=== PATIENT | female | born 1995 | race African-American/Black ===

== ENCOUNTER 2020-02-05 12:46 | Inpatient (IN) | payer MEDICARE, MEDICAID, SELFPAY ==
[2020-02-05] VITALS (36 sets, daily range): BP systolic 101–154; BP diastolic 54–140; PULSE 83–110; RESP 13–32; TEMP 36.4–36.7; O2SAT 93–100; BMI 27.3
--- NOTE | ~2020-02-05 | XR_ITS ---
XR chest 1V portable DATE: 02/05/2020 13:41 INDICATION: Chest pain. Sickle cell. TECHNIQUE: Portable upright AP chest on 02/05/2020 at 1339 hours COMPARISON: None FINDINGS: Right Port-A-Cath catheter, catheter tip overlying upper right atrium. There is borderline heart size (not optimally evaluated on AP projection because of magnification). There is pulmonary vascular redistribution, consistent with mild pulmonary venous hypertension. There is mild atelectasis at the right lung base.The lungs otherwise appear clear. There is patchy density at the proximal right humerus suggesting bone infarct. IMPRESSION: Mild pulmonary venous redistribution Mild atelectasis at the right lung base Reviewed, dictated and finalized at location A.
--- NOTE | ~2020-02-05 | CT_ITS ---
EXAMINATION: CT brain wo con DATE: 02/05/2020 14:56 INDICATION: Syncope TECHNIQUE: Computed tomography (CT) of the head was performed without intravenous contrast. Sagittal and coronal reconstructions were performed. The mA was adjusted according to patient size. Iterative reconstruction technique was employed. The dose-length product was 605.33 mGy-cm. COMPARISON: None FINDINGS: No acute intracranial hemorrhage, acute infarction or abnormal extra axial fluid collection. Ventricl es are normal and symmetric. No mass/mass effect. The orbits, paranasal sinuses and mastoid air cells are normal. IMPRESSION: 1. Normal head CT. Reviewed, dictated and finalized at location A. IMPRESSION: 1. Normal head CT.
--- NOTE | ~2020-02-05 | CT_ITS ---
EXAMINATION: CTA chest PE protocol EXAM DATE: 02/05/2020 14:56 INDICATION: Syncope. Difficulty breathing. Chest pain. TECHNIQUE: Spiral CTA of the chest (pulmonary arteries) was performed with 100 cc Omnipaque 350 intr avenous contrast injection. Images were acquired during the pulmonary arterial phase. Coronal maxi mum intensity projection 3D-reconstructions were created by the technologist on dedicated workstation . Axial, coronal and sagittal reformatted images were reviewed. The dose-length product (DLP) for t his examination was 681.03 mGy-cm. The exposure was tailored according to patient size (auto mA exp osure control), and iterative reconstruction (ASIR) was used as additional dose reduction technique. There is no prior study for comparison. FINDINGS: Suboptimal injection, but vessels still adequately enhanced. There are no pulmonary emboli . Right-sided Chemo-Port. There is cardiomegaly. No thoracic aortic dissection. Several linear ganesh ons of right basilar atelectasis. No evidence of superimposed infection. There are no pleural or per icardial effusions. Tracheobronchial tree is patent. There is no mediastinal, hilar or axillary l ymphadenopathy. There is no pneumothorax. No evidence of coronary arterial calcification. Cholec ystectomy clips. Abnormal appearance to the vertebral bodies, some sclerosis and mottled appearance with some endplate cavitation, characteristic appearance for sickle cell disease? IMPRESSION: 1. No pulmonary emboli. 2. Scattered regions of linear right basilar atelectasis. 3. Cardiomegaly. 4. Bone changes consistent with sickle cell disease. Reviewed, dictated and finalized at location B.
--- NOTE | 2020-02-05 13:00 | ECG_ITS ---
Measurements Intervals [place] Rate: 86 P: 147 [place]: 136 QRS: -32 QRSD: 97 T: 27 QT: 403 QTc: 484 Interpretive Statements SINUS RHYTHM LEFT AXIS DEVIATION EARLY PRECORDIAL R/S TRANSITION HIGH LATERAL INFARCT, AGE INDETERMINATE BORDERLINE T WAVE ABNORMALITY- ANT/INF LEADS BASELINE WANDER- I, II, AVR ABNORMAL ECG Electronically Signed On 02-05-2020 13:44:06 CDT by Tyree Garcia D.O.
--- NOTE | 2020-02-05 13:26 | ED.GENADULT ---
HPI - General Adult General Chief complaint: Syncope Stated complaint: DIFFICULTY BREATHING,CP Time Seen by Provider: 02/05/20 12:47 Source: patient and EMS History of Present Illness HPI narrative: Patient is a 24 y/o female complaining of chest pain and SOB starting less than 1 hour ago. She states that her chest pain is located in mid-sternal area and rates it as 10/10. There is no alleviating or exacerbating factor. She also got dizzy and possibly passed out or almost passed out. She has diffuse bodyache. She was working at [employer] building while this happened. Of note, she has history of sickle cell disease. Related Data Home Medications Medication Instructions Recorded Confirmed oxycodone-acetaminophen 10 - 325 tablet PO Q6H PRN 02/05/20 02/05/20 Allergies Allergy/AdvReac Type Severity Reaction Status Date / Time morphine Allergy Hives Verified 02/05/20 13:01 Review of Systems Constitutional: Constitutional: Denies chills, Denies fever(s), Denies headache(s) and Denies weakness Eyes: Eyes: Denies blurry vision ENT: Denies headache(s) and Denies neck pain Cardiovascular: Cardiovascular: Reports chest pain and Reports dyspnea Respiratory: Respiratory: Denies cough and Reports dyspnea Gastrointestinal: Gastrointestinal: Denies abdominal pain, Denies diarrhea, Denies nausea and Denies vomiting Genitourinary: Genitourinary: Denies hematuria and Denies dysuria Musculoskeletal: Musculoskeletal: Denies back pain, Reports myalgias and Denies neck pain Neurologic: Reports dizziness, Reports syncope, Denies headache(s) and Denies weakness [facility] Social History Social History Gender identity (if verbalized by the patient): Female Sexual Orientation (if Verbalized by the Patient): Straight or Heterosexual Exam Const: General: no acute distress and well developed Orientation/consciousness: oriented to person, oriented to place, oriented to time and patient oriented x3 HENMT: Head: normocephalic Ears: external ears normal General nose exam: Normal external nose present Eyes: General: appearance normal, both eyes and all related structures Conjunctivae: conjunctivae normal Neck: Neck: normal visual inspection and full ROM Chest: Chest palpation & inspection: normal inspection of the chest and no tenderness Resp: Effort & Inspection: normal respiratory effort Auscultation: clear to auscultation bilaterally Cardio: Rate: regular rate Rhythm: regular rhythm GI: GI Palp: No abdominal tenderness and Yes Soft to palpation Skin: General skin exam: normal color and turgor normal Neuro: General: oriented to person, oriented to place, oriented to time and patient oriented x3 Cognition (Neuro): normal cognition Extrem: General: normal to inspection, full ROM and no pedal edema Psych: Appearance: grossly normal Mental Status: mental status grossly normal Affect: normal affect Course Consultations Consultation #1: Discussed with JACOBO Chavis, who agrees to admit to Dr. Matos. Date: 02/05/20 Time: 17:50 Vital Signs Vital signs: Vital Signs Temperature 36.7 C 02/05/20 12:47 Pulse Rate 90 02/05/20 12:47 Respiratory Rate 13 02/05/20 12:47 Blood Pressure 124/82 02/05/20 12:47 Pulse Oximetry 100 02/05/20 12:47 Temperature 36.7 C 02/05/20 13:02 Pulse Rate 90 02/05/20 20:26 Respiratory Rate 18 02/05/20 20:26 Blood Pressure 111/54 L 02/05/20 20:26 Pulse Oximetry 100 02/05/20 20:26 Medical Decision Making Vital Signs Vital Signs: Vital Signs Temperature 36.7 C 02/05/20 12:47 Pulse Rate 90 02/05/20 12:47 Respiratory Rate 13 02/05/20 12:47 Blood Pressure 124/82 02/05/20 12:47 Pulse Oximetry 100 02/05/20 12:47 Temperature 36.7 C 02/05/20 13:02 Pulse Rate 90 02/05/20 20:26 Respiratory Rate 18 02/05/20 20:26 Blood Pressure 111/54 L 02/05/20 20:26 Pulse Oximetry 100 02/05/20
[2020-02-05 13:40] LABS: Basophils Absolute Auto 0.1 K/mm3 (0.0-0.1); Basophils Percent Auto 0.4 % (0.2-1.2); Eosinophils Absolute Auto 0.3 K/mm3 (0-0.3); Eosinophils Percent Auto 1.6 % (0-4.4); Hematocrit 21.1 % (37.0-47.0); Hemoglobin 7.2 g/dL (12.0-15.0); Immature Granulocyte Absolute 1.15 K/mm3 (0.00-0.031); Immature Granulocyte Percent A 5.7 % (0-0.5); Lymphocytes Absolute Auto 3.87 K/mm3 (0.9-3.2); Lymphocytes Percent Auto 19.1 % (18.3-44.2); Mean Corpuscular HGB Conc 34.1 g/dl (32-36); Mean Corpuscular Hemoglobin 30.8 pg (26-34); Mean Corpuscular Volume 90.2 fl (80-100); Mean Platelet Volume 9.9 fl (7.4-10.4); Monocytes Absolute Auto 1.7 K/mm3 (0.1-0.6); Monocytes Percent Auto 8.2 % (2.6-8.5); Neutrophils Absolute Auto 13.2 K/mm3 (1.3-6.7); Nucleated Red Blood Cells Absolute Auto 0.3 K/mm3 (0.0-0.012); Nucleated Red Blood Cells Perc 1.6 % (0.0-0.2); Platelet Count Result 429 k/mm3 (150-375); Red Blood Count 2.34 M/mm3 (4.2-5.4); Red Cell Distribution Width 24.1 % (11.5-14.5); White Blood Count 20.3 K/mm3 (4.5-10.0)
[2020-02-05 13:51] LABS: D Dimer 1.82 ug/mL (<0.48)
[2020-02-05 13:52] LABS: Alanine Aminotransferase 28 U/L (4-35); Albumin Level 4.6 g/dL (3.5-5.1); Alkaline Phosphatase 117 U/L (38-126); Anion Gap 12 mmol/L (8-16); Aspartate Amino Transferase 41 U/L (14-36); Bilirubin,Total 2.8 mg/dL (0.2-1.3); Blood Urea Nitrogen 7 mg/dL (7-17); Calcium 9.1 mg/dL (8.4-10.2); Carbon Dioxide 22 mmol/L (22-30); Chloride 108 mmol/L (98-107); Estimated CRCL calculation 181 ml/min; Estimated Glomerular Filt Rate > 60; Glucose 105 mg/dL (65-105); Potassium 3.8 mmol/L (3.4-5.0); Sodium 142 mmol/L (137-145)
[2020-02-05 14:03] LABS: Troponin I < 0.012 ng/mL (0.000-0.034)
[2020-02-05 14:14] LABS: Reticulocyte Hemoglobin Conten 30.8 pg (28.2-35.7); Reticulocyte Percent 27.51 % (0.7-4.3); Reticulocytes Absolute 0.64 B/L (32.2-175.7)
[2020-02-05 14:17] LABS: Add Urine Microscopic? YES; Appearance Urine Cloudy (Clear); Bacteria Urine 1+ /hpf; Bilirubin Urine Negative (Negative); Blood Urine Negative (Negative); Color Urine Yellow (Yellow); Glucose Urine UA Negative (Negative); Ketones Urine Negative (Negative); Leukocyte Esterase Ur Trace LEU/UL (Negative); Mucus Urine Rare /lpf; Nitrate Urine Negative (Negative); Protein Urine 1+ mg/dL (Negative); RBC Urine 0-2 /hpf (0-2); Specific Grav Ur 1.013 (1.001-1.035); Squamous Epithelial Cell Urine Many /hpf (Few); WBC Urine 0-3 /hpf
[2020-02-05] MEDS: KETOROLAC 30 MG/ML VIAL (*BKC) IV PUSH (14:29)
[2020-02-05 16:57] LABS: Troponin I < 0.012 ng/mL (0.000-0.034)
[2020-02-05] MEDS: fentaNYL CITRATE INJ (*CRX) 100 MCG/2 ML VIAL 50 MCG IV PUSH ×3 (17:11→23:30)
[2020-02-05] MEDS: SODIUM CHLORIDE 0.9% IV 1,000 ML 999 ML IV CONT (18:21)
[2020-02-05] MEDS: SODIUM CHLORIDE 0.9% IV 1,000 ML 125 ML IV CONT (20:00)
[2020-02-05 20:17] LABS: Troponin I < 0.012 ng/mL (0.000-0.034)
--- NOTE | 2020-02-05 20:29 | PC.NURSE ---
pt transferred to the floor at this time. unable to discharge from our tracker.
--- NOTE | 2020-02-05 23:35 | ADMGEN ---
This patient, Jered Holloway, was admitted to 2 Medical Room 241-01. Patient/family oriented to hospital policies and general routines including ID bracelet, bed and alarms, visiting hours, pain management, procedures, bathroom and other care routines, personal items, smoking policy, room service/diet, and visiting hours. Valuables list has been completed. Information on how to activate the Rapid Response Team has been discussed. Patient/Family are encouraged to report perceived risks to care and to ask questions if they do not understand what they are told or what they should do.
[2020-02-06] VITALS (13 sets, daily range): BP systolic 106–123; BP diastolic 48–71; PULSE 79–114; RESP 16–22; TEMP 36.4–37.1; O2SAT 94–98
[2020-02-06] MEDS: HYDROmorphone HCL INJ (*CRX) 1 MG/ML SYR IV PUSH ×5 (01:25→20:24)
[2020-02-06] MEDS: SODIUM CHLORIDE 0.9% IV 1,000 ML 125 ML IV CONT ×2 (04:35→12:31)
--- NOTE | 2020-02-06 12:10 | PM.IMHP ---
H&P: HPI History of Present Illness Date/Time: 02/06/20 12:10 Chief complaint: sickle cell crisis, syncope Narrative: cc chest pain Jered Holloway is a 24 year old female pt works in [employer] pt had a rapid response called yesterday when she passed out in the hospital taken straight to ED. Pt had felt chest pain and sob. Pt has a history of sickle cell disease. Pe was suspected. Pt had ct chest which showed ateclectasis. Pt running high wcc and low hb. Pt to have iv abx and blood transfusion today. Chest pain ongoing 12/09 this morning pt looks in distress. Pt sees sickle cell specialist in [facility]. I will consult DR Frank here. Chest pain central associated with SOB,dizziness and body aches, severe yesterday 02/08 Review of Systems Constitutional: Constitutional: Reports fatigue and Reports weakness Comments: sweaty flushed Cardiovascular: Cardiovascular: Reports chest pain Respiratory: Respiratory: Denies chest congestion and Reports dyspnea Gastrointestinal: Gastrointestinal: Denies no additional gastrointestinal complaints Musculoskeletal: Musculoskeletal: Reports back pain and Reports myalgias Comments: legs back Neurologic: Denies Abnormal speech present, Denies confusion, Denies lack of coordination, Denies focal weakness and Denies paresthesias Psychiatric: Psychiatric: Denies no additional psychiatric complaints PMFSH Social History Social History Smoking status: Never smoker Alcohol intake: never Substance use: never Gender identity (if verbalized by the patient): Female Sexual Orientation (if Verbalized by the Patient): Straight or Heterosexual Spiritual care concerns: No Meds Home Medications and Allergies Home Medications Medication Instructions Recorded Confirmed Type oxycodone-acetaminophen 10 - 325 tablet PO Q6H PRN 02/05/20 02/05/20 History Allergies Allergy/AdvReac Type Severity Reaction Status Date / Time morphine Allergy Hives Verified 02/05/20 13:01 Vital Signs Vital Signs - 24 hr 02/05/20 12:47 02/05/20 12:51 02/05/20 12:52 Temperature 36.7 C Pulse Rate 90 86 84 Respiratory Rate 13 16 22 H Blood Pressure 124/82 124/82 Pulse Oximetry 100 97 100 02/05/20 13:01 02/05/20 13:02 02/05/20 13:15 Temperature 36.7 C Pulse Rate 89 86 110 H Respiratory Rate 21 H 18 13 Blood Pressure 125/73 Pulse Oximetry 100 100 97 02/05/20 13:16 02/05/20 13:30 02/05/20 13:31 Temperature Pulse Rate 105 H Respiratory Rate 18 Blood Pressure 154/140 H Pulse Oximetry 93 93 97 02/05/20 13:45 02/05/20 13:46 02/05/20 14:01 Temperature Pulse Rate 89 87 Respiratory Rate Blood Pressure 112/60 101/73 Pulse Oximetry 95 100 94 02/05/20 14:02 02/05/20 14:16 02/05/20 14:18 Temperature Pulse Rate 101 H Respiratory Rate 19 Blood Pressure 105/60 Pulse Oximetry 97 97 98 02/05/20 14:30 02/05/20 14:31 02/05/20 15:02 Temperature Pulse Rate 92 85 94 Respiratory Rate 18 16 25 H Blood Pressure 117/79 Pulse Oximetry 98 98 96 02/05/20 15:15 02/05/20 15:30 02/05/20 15:47 Temperature Pulse Rate Respiratory Rate Blood Pressure Pulse Oximetry 99 100 97 02/05/20 16:00 02/05/20 16:24 02/05/20 16:33 Temperature Pulse Rate 93 84 Respiratory Rate 18 20 Blood Pressure Pulse Oximetry 98 99 02/05/20 16:53 02/05/20 17:10 02/05/20 17:15 Temperature Pulse Rate 102 H Respiratory Rate 32 H Blood Pressure 113/62 Pulse Oximetry 97 99 98 02/05/20 17:16 02/05/20 17:30 02/05/20 17:31 Temperature Pulse Rate 95 88 83 Respiratory Rate 19 21 H 18 Blood Pressure 120/68 Pulse Oximetry 97 100 100 02/05/20 18:26 02/05/20 18:44 02/05/20 18:45 Temperature Pulse Rate 84 93 94 Respiratory Rate 21 H 20 21 H Blood Pressure 111/54 L Pulse Oximetry 97 99 99 02/05/20 18:46 02/05/20 20:00
[2020-02-06] MEDS: oxyCODONE HCL (*CRX) 5 MG TAB IR PO (12:30)
[2020-02-06] MEDS: diphenhydrAMINE HCl CAP 25 MG CAPSULE 50 MG PO (15:53)
[2020-02-06] MEDS: HYDROXYUREA (*CHEMO) 500 MG CAPSULE PO (17:34)
[2020-02-07] VITALS (9 sets, daily range): BP systolic 104–121; BP diastolic 56–70; PULSE 67–104; RESP 16–22; TEMP 36.2–37.4; O2SAT 96–100
[2020-02-07] MEDS: HYDROmorphone HCL INJ (*CRX) 1 MG/ML SYR IV PUSH ×5 (01:00→22:30)
[2020-02-07] MEDS: SODIUM CHLORIDE 0.9% IV 1,000 ML 125 ML IV CONT ×3 (01:30→18:45)
[2020-02-07 06:09] LABS: Hematocrit 23.7 % (37.0-47.0); Hemoglobin 7.7 g/dL (12.0-15.0); Mean Corpuscular HGB Conc 32.5 g/dl (32-36); Mean Corpuscular Hemoglobin 29.8 pg (26-34); Mean Corpuscular Volume 91.9 fl (80-100); Mean Platelet Volume 10.4 fl (7.4-10.4); Platelet Count Result 372 k/mm3 (150-375); Red Blood Count 2.58 M/mm3 (4.2-5.4); White Blood Count 13.7 K/mm3 (4.5-10.0)
[2020-02-07 06:35] LABS: Anion Gap 9 mmol/L (8-16); Blood Urea Nitrogen 4 mg/dL (7-17); Calcium 8.8 mg/dL (8.4-10.2); Carbon Dioxide 26 mmol/L (22-30); Chloride 106 mmol/L (98-107); Estimated CRCL calculation 181 ml/min; Estimated Glomerular Filt Rate > 60; Glucose 95 mg/dL (65-105); Potassium 3.9 mmol/L (3.4-5.0); Sodium 141 mmol/L (137-145)
[2020-02-07] MEDS: HYDROXYUREA (*CHEMO) 500 MG CAPSULE PO ×2 (08:38→16:36)
--- NOTE | 2020-02-07 12:29 | PM.IMPN ---
Progress Note: A&P Assessment and Plan (1) Sickle cell crisis: Code(s): D57.00 - Hb-SS disease with crisis, unspecified Status: Acute Assessment and Plan: Consult Dr Frank hematology Continue iv dilaudid for severe pain and iv fluids, continue pts home oxycodone Continue hydroxyrea Sp blood transfusion (2) Chest pain: Qualifiers: Chest pain type: unspecified Qualified Code(s): R07.9 - Chest pain, unspecified Code(s): R07.9 - Chest pain, unspecified Status: Acute Assessment and Plan: Secondary to early pneumonia, IV rocephin and iv zithromax started, Bc negative to date (3) Syncope: Qualifiers: Syncope type: unspecified Qualified Code(s): R55 - Syncope and collapse Code(s): R55 - Syncope and collapse Status: Resolved Assessment and Plan: Secondary to dizziness and bodyaches and pneumonia Subjective Date/time seen: 02/07/20 12:29 Interval history: 24 year old female pt works in [employer] pt had a rapid response called yesterday when she passed out in the hospital taken straight to ED. Pt had felt chest pain and sob. Pt feels better today denies chest pain or sob today no cough or fever. Wcc improving, Hb still low. Pt received blood yesterday from [place], awaiting to see Dr Frank here, hopeful discharge in 1-2 days time. Review of Systems Constitutional: Constitutional: Reports fatigue and Reports weakness Cardiovascular: Cardiovascular: Denies chest pain and Denies dyspnea Respiratory: Respiratory: Denies cough, Denies excessive phlegm production and Denies wheezing Gastrointestinal: Gastrointestinal: Denies no additional gastrointestinal complaints Psychiatric: Psychiatric: Denies depression Exam Const: General: comfortable and confusion; No acute distress HENMT: Head: normocephalic Eyes: General: appearance normal, both eyes and all related structures Pupils: Equal, round and reactive pupils present Neck: Neck: supple Chest: Chest palpation & inspection: normal inspection of the chest Resp: Effort & Inspection: normal respiratory effort Auscultation: clear to auscultation bilaterally Cardio: Jugular venous distension: no JVD Rhythm: regular rhythm Heart sounds: S1 normal heart sound present and S2 normal heart sound present GI: Inspection: normal to inspection Auscultation: normal bowel sounds Skin: General skin exam: normal color and dry skin Neuro: General: No confusion Cranial nerves: Yes CN's II-XII intact bilaterally and Yes Equal, round and reactive pupils present Cognition (Neuro): normal cognition Speech: normal speech and No Abnormal speech present Motor exam (neuro): 5/5 motor strength present throughout Extrem: General: normal to inspection Psych: Appearance: grossly normal Mental Status: mental status grossly normal Objective Data Vital Signs Vital Signs: Vital Signs - 24 hr 02/06/20 14:00 02/06/20 16:00 02/06/20 18:00 Temperature 36.4 C 36.4 C Pulse Rate 100 99 98 Respiratory Rate 20 20 Blood Pressure 117/67 113/60 Pulse Oximetry 95 96 02/06/20 20:00 02/06/20 21:05 02/06/20 21:25 Temperature 36.9 C 37.0 C 37.1 C Pulse Rate 110 H 110 H 114 H Respiratory Rate 22 H 22 H 22 H Blood Pressure 118/66 115/57 L 122/58 L Pulse Oximetry 97 94 95 02/06/20 22:25 02/06/20 23:45 02/07/20 00:00 Temperature 36.8 C 36.6 C 37.1 C Pulse Rate 112 H 97 98 Respiratory Rate 22 H 22 H 18 Blood Pressure 113/48 L 111/62 110/56 L Pulse Oximetry 98 95 98 02/07/20 04:00 02/07/20 04:30 02/07/20 09:45 Temperature 36.5 C 36.6 C Pulse Rate 94 101 H 70 Respiratory Rate 22 H 16 Blood Pressure 104/58 L 112/61 Pulse Oximetry 96 98 Intake/Output Intake/Output: Intake & Output 02/04/20 02/05/20 02/06/20 02/07/20 23:59 23:59 23:59 23:59 Intake Total 1000 3370 2480 Output Total 1400 600 Balance 1000 1970 1880 Meds/Results Medications: Active Medicatio
[2020-02-07] MEDS: CENTRAL LINE FLUSH 10 ML IV PUSH ×2 (13:07→22:00)
--- NOTE | 2020-02-07 16:37 | PDONCCN ---
HPI - Date of Consult Date/Time: 02/07/20 16:37 Requesting Physician: Rosalia Matos MD Primary Care Provider: [facility] - Consult Narrative Reason for consult: Sickle cell crisis Narrative: Jered Holloway is a 24 year old female with history of sickle cell SS disease. She has been followed by Dr. Foster at [facility] in [place]. 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 While she was at work yesterday she felt dizzy and fell down. Her labs showed elevated WBC count with hemoglobin of 7.2. Cording to the patient are normal baseline CBC lacy about between 7 and 8. She denies any bleeding including menstrual bleeding since she has an IUD placed. He was feeling lightheaded and dizzy yesterday. She is feeling much better after receiving blood transfusion. She was of also on hydroxyurea until the start of this year which has been discontinued as it was not helping her hemoglobin. She normally only take Percocet as needed at home but not on a daily basis. She denies any bone pain and chest pain. She denies any other complaints. CT chest showed no pulmonary embolism but linear right basilar atelectasis with bone changes consistent with sickle cell disease. Review of Systems - Review of Systems All systems reviewed & are unremarkable except as noted in HPI and bel - Neurologic Reports syncope, Reports weakness, Denies abnormal speech, Denies confusion, Denies headache(s), Denies lack of coordination, Denies focal weakness, Denies paresthesias PMFSH - Social History Social History: Social History (Last Reviewed 02/06/20 @ 16:28 by Taina Esquivel MD) Gender Identity: Gender identity (if verbalized by the patient): Female Sexual Orientation: Sexual Orientation (if Verbalized by the Patient): Straight or Heterosexual Alcohol Use: Alcohol intake: never Substance Use: Substance use: never Others: Spiritual care concerns: No Smoking Status: Smoking status: Never smoker Meds Home Medications Medication Instructions Recorded Confirmed Type oxycodone-acetaminophen 10 - 325 tablet PO Q6H PRN 02/05/20 02/05/20 History Allergies Allergy/AdvReac Type Severity Reaction Status Date / Time morphine Allergy Hives Verified 02/05/20 13:01 Results - Labs CBC & Chem 7: 02/07/20 05:35 02/07/20 05:35 Labs: Short CBC 02/07/20 Range/Units 05:35 WBC 13.7 H (4.5-10.0) K/mm3 Hgb 7.7 L (12.0-15.0) g/dL Hct 23.7 L (37.0-47.0) % Plt Count 372 (150-375) k/mm3 BMP 02/07/20 05:35 Sodium 141 Potassium 3.9 Chloride 106 Carbon Dioxide 26 BUN 4 L Creatinine 0.40 L Glucose 95 Calcium 8.8 Assessment and Plan - Additional Plan Sickle cell anemia with sickle cell crisis. Patient is a 24-year-old female with sickle cell SS disease. Her normal baseline hemoglobin is between 7-8. She got admitted to the hospital while she was at work yesterday she fell down after being feeling dizzy and lightheaded. She denies any bleeding and bruising. He received 1 unit of packed red blood cells with improvement in her symptoms. Normally at home she takes Percocet only as-needed basis. She is not taking hydroxyurea at home as well. Agree with starting IV hydration as well as hydroxyurea. I will check LDH. Clinically she is improving. I will also order workup for anemia that will include iron studies and vitamin B12 level. Leukocytosis. CT chest finding noted. Agree with continuation of IV antibiotic. WBC count has already improved. Patient will continue to follow with her oncologist after discharge. Exam - Vital Signs Vital Signs - 24 hr 02/06/20 18:00 02/06/20 20:00 02/06/20 21:05 Temperature 36.4 C 36.9 C 37.0 C Pulse Rate 98 110 H 110 H Respiratory Rate 20 22 H 22 H Blood Pressure 113/60 118/66 115/57 L Pulse Oximetry 96 97 94 02/06/20 21:25 02/06/20 22:25 02/06/20 23:45 Tem
[2020-02-07 19:01] LABS: Lactate Dehydrogenase 901 U/L (313-618)
[2020-02-07 19:37] LABS: Iron 69 ug/dL (37-170)
[2020-02-07 19:46] LABS: Percent Iron Saturation 28 % (20-50)
[2020-02-07] MEDS: oxyCODONE/ACETAMINOPHEN (*CRX) 5-325 MG TABLET 1 TABLET PO (20:39)
[2020-02-07 20:57] LABS: Ferritin > 2000.00 ng/mL (6.24-137)
[2020-02-08] VITALS: BP 104/56; PULSE 82; RESP 20; TEMP 36.6; O2SAT 96
[2020-02-08] MEDS: SODIUM CHLORIDE 0.9% IV 1,000 ML 125 ML IV CONT (03:41)
[2020-02-08 04:00] VITALS: BP 108/58; PULSE 81; RESP 18; TEMP 36.7; O2SAT 98
[2020-02-08 06:07] LABS: Hematocrit 23.1 % (37.0-47.0); Hemoglobin 7.8 g/dL (12.0-15.0); Mean Corpuscular HGB Conc 33.8 g/dl (32-36); Mean Corpuscular Hemoglobin 30.1 pg (26-34); Mean Corpuscular Volume 89.2 fl (80-100); Platelet Count Result 431 k/mm3 (150-375); Red Blood Count 2.59 M/mm3 (4.2-5.4); White Blood Count 10.6 K/mm3 (4.5-10.0)
[2020-02-08 06:13] LABS: Anion Gap 7 mmol/L (8-16); Blood Urea Nitrogen 5 mg/dL (7-17); Calcium 9.1 mg/dL (8.4-10.2); Carbon Dioxide 26 mmol/L (22-30); Chloride 107 mmol/L (98-107); Estimated CRCL calculation 181 ml/min; Estimated Glomerular Filt Rate > 60; Glucose 96 mg/dL (65-105); Sodium 140 mmol/L (137-145)
[2020-02-08] MEDS: CENTRAL LINE FLUSH 10 ML IV PUSH (06:49)
[2020-02-08] MEDS: HYDROXYUREA (*CHEMO) 500 MG CAPSULE PO (08:32)
--- NOTE | 2020-02-08 10:36 | PM.DS ---
DS: Admitting Diagnosis Admitting Diagnosis Admitting Diagnosis: Sickle cell crisis and syncope DS: Discharge Diagnosis Discharge Diagnosis (1) Sickle cell crisis: Code(s): D57.00 - Hb-SS disease with crisis, unspecified Status: Acute Assessment and Plan: Pt was seen by Dr Frank hematology. Pt had iv dilaudid for severe pain and iv fluids, continue pts home oxycodone at home. Continue hydroxyrea at home. Sp blood transfusion H b is 7.8, her baseline Hb is 7-8. Pt to [facility] sickle cell and her PCP in 1-4 weeks time. (2) Chest pain: Qualifiers: Chest pain type: unspecified Qualified Code(s): R07.9 - Chest pain, unspecified Code(s): R07.9 - Chest pain, unspecified Status: Acute Assessment and Plan: Secondary to early pneumonia, IV rocephin and iv zithromax started, Bc negative to date, pt can be discharged on a zpack (3) Syncope: Qualifiers: Syncope type: unspecified Qualified Code(s): R55 - Syncope and collapse Code(s): R55 - Syncope and collapse Status: Resolved Assessment and Plan: Secondary to dizziness and bodyaches and pneumonia, pt feels much better now after iv abx and iv fluids. DS: Summary Time Spent with Patient Time attestation: Total time spent providing and/or coordinating discharge services: 40 minutes on day of discharge. Exam Const: General: comfortable; No acute distress Orientation/consciousness: No confusion HENMT: Head: normocephalic Eyes: General: appearance normal, both eyes and all related structures Pupils: Equal, round and reactive pupils present Neck: Neck: supple Chest: Chest palpation & inspection: normal inspection of the chest Resp: Effort & Inspection: normal respiratory effort Auscultation: clear to auscultation bilaterally tactile fremitus present: other (pt has a port in place ) Cardio: Jugular venous distension: no JVD Rhythm: regular rhythm Heart sounds: S1 normal heart sound present and S2 normal heart sound present GI: Inspection: normal to inspection Auscultation: normal bowel sounds Skin: General skin exam: normal color and dry skin Neuro: General: No confusion Cranial nerves: Yes CN's II-XII intact bilaterally and Yes Equal, round and reactive pupils present Cognition (Neuro): normal cognition Speech: normal speech and No Abnormal speech present Motor exam (neuro): 5/5 motor strength present throughout Extrem: General: normal to inspection Psych: Appearance: grossly normal Mental Status: mental status grossly normal DS: Data Data Completed and Pending Labs on day of discharge: Labs from last 24 hours 02/08/20 02/08/20 02/07/20 05:27 05:27 18:38 WBC 10.6 H RBC 2.59 L Hgb 7.8 L Hct 23.1 L MCV 89.2 MCH 30.1 MCHC 33.8 RDW 22.0 H Plt Count 431 H MPV 10.0 Sodium 140 Potassium 4.0 Chloride 107 Carbon Dioxide 26 Anion Gap 7 L BUN 5 L Creatinine 0.40 L Estim Creat Clear Calc 181 Estimated GFR > 60 Glucose 96 Calcium 9.1 Iron TIBC % Saturation Ferritin Lactate Dehydrogenase 901 H Vitamin B12 381.0 02/07/20 18:38 WBC RBC Hgb Hct MCV MCH MCHC RDW Plt Count MPV Sodium Potassium Chloride Carbon Dioxide Anion Gap BUN Creatinine Estim Creat Clear Calc Estimated GFR Glucose Calcium Iron 69 TIBC 248 L % Saturation 28 Ferritin > 2000.00 H Lactate Dehydrogenase Vitamin B12 Preliminary micro results at discharge 02/06/20 13:14 Blood Culture - Preliminary Blood 02/06/20 14:08 Blood Culture - Preliminary Blood Discharge Plan Discharge Attending physician on discharge: Taina Esquivel Consulting providers: Pankaj Srivastava ; Carlitos Frank Discharging Clinician: Taina Esquivel Anticipated Discharge Date/Time: 02/08/20 10:34 Patient Disposition: Home, Self-Care Activity: as tolerated
[2020-02-08] MEDS: HEPARIN SOD FLUSH 500 UNITS/5 ML SYRINGE IV PUSH (12:08)
== END 2020-02-08 12:22 | disposition home or self-care (01) | DRG 811 ==
LOC: ANHED 20:38 → ANH2MED 20:39
PROVIDERS: Internal Medicine Hematology & Oncology; Admitting Provider Family Medicine; Emergency Provider Emergency Medicine; Visit Provider Family Medicine
DX: D57.00 Hb-SS disease with crisis, unspecified (principal); J18.9 Pneumonia, unspecified organism; R55 Syncope and collapse
CPT/HCPCS: 36415; 36430; 70450; 71045; 71275; 80048; 80053; 81001; 81025; 82607; 82728; 83540; 83550; 83615; 84484; 85025; 85027; 85046; 85380; 86850; 86900; 86901; 86920; 87040; 93005; 96361; 96365; 96366; 96375; 96376; 99285; A9270; G0378; J0456; J0696; J1170; J1885; J3010; J7030; P9016; Q9967